=== PATIENT | male | born 1950 | race Caucasian/White ===

== ENCOUNTER 2017-03-21 00:20 | Emergency (ER) | payer OTHER ==
[2017-03-21] MEDS ORDERED: CLINDAMYCIN 600MG PREMIX IVPB 600 MG/50 ML BAG IVPB ONE ×2 (01:04→02:17)
[2017-03-21 01:08] VITALS: BP 151/94; PULSE 85; TEMP 98; BMI 23.6
[2017-03-21 01:14] LABS: BASOPHIL 1.3 % (0-2.0); MCH 30.4 pg (25.7-33.7); MCHC 33.7 g/dl (32.0-35.9); MEAN CELL VOLUME 90.1 fl (80-96); MEAN PLT VOLUME 8.5 fl (7.5-11.1); NEUTROPHILS 64.8 % (42.8-82.8); PLATELET COUNT 156 K/MM3 (134-434); RDW 14.2 % (11.9-15.9); WHITE BLOOD COUNT 6.7 K/mm3 (4.0-10.0)
--- NOTE | 2017-03-21 01:42 | PDOC ---
History of Present Illness - History of Present Illness Initial Comments: 03/21/17 01:47 The patient is a 66 year old male, with a significant past medical history of plantar warts, squamous cell carcinoma of the tongue (diagnosed 1999), who presents to the emergency department with plantars warts. Patient states he had a treatment last week for his warts on his left foot. He is worried that they may be infected so he came to the ER since they seemed to become swollen earlier in the day. He states that he feels like hes walking on golf balls. He has been taking his antibiotics after his recent root canal. He denies any recent fevers, chills, headache or dizziness. He denies any recent nausea, vomit, diarrhea or constipation. He denies any recent chest pain or shortness of breath. He denies any recent dysuria, frequency, urgency or hematuria. Allergies: NKA Primary Care Physician: Nargis Durbin Glassie: Nacho Krishnamurthy <Beverly Adkins - Last Filed: 03/21/17 01:46> <Wendie Morocho - Last Filed: 03/21/17 02:12> - General Chief Complaint: Pain Stated Complaint: R/O L FOOT INFECTION Time Seen by Provider: 03/21/17 01:02 Past History <Beverly Adkins - Last Filed: 03/21/17 01:46> - Past Medical History COPD: No Thyroid Disease: Yes (hypo) - Immunization History Immunization Up to Date: Yes - Suicide/Smoking/Psychosocial Hx Smoking History: Never smoked Have you smoked in the past 12 months: No Hx Alcohol Use: No Drug/Substance Use Hx: No Substance Use Type: None <Wendie Morocho - Last Filed: 03/21/17 02:12> - Past Medical History Allergies/Adverse Reactions: Allergies Allergy/AdvReac Type Severity Reaction Status Date / Time amoxicillin Allergy Verified 03/21/17 00:43 Home Medications: Ambulatory Orders Levothyroxine [Synthroid -] 25 mcg PO DAILY 03/21/17 Review of Systems - Review of Systems Comments:: 03/21/17 01:47 CONSTITUTIONAL: Absent: fever, no chills, no fatigue EYES: Absent: visual changes ENT: Absent: ear pain, no sore throat CARDIOVASCULAR: Absent: chest pain, no palpitations RESPIRATORY: Absent: cough, no SOB GI: Absent: abdominal pain, no nausea, no vomiting, no constipation, no diarrhea GENITOURINARY: Absent: dysuria, no frequency, no hematuria MUSCULOSKELETAL: Absent: back pain, no arthralgia, no myalgia SKIN: Present: plantars warts NEURO: Absent: headache <Beverly Adkins - Last Filed: 03/21/17 01:46> *Physical Exam - Vital Signs Last Vital Signs Temp Pulse Resp BP Pulse Ox 98 F 85 18 151/94 100 03/21/17 00:46 03/21/17 00:46 03/21/17 00:46 03/21/17 00:46 03/21/17 00:46 - Physical Exam Comments: 03/21/17 01:47 GENERAL: Well-appearing, well-nourished. No apparent distress. HEENT: Normocephalic, atraumatic. PERRL, EOM intact. CARDIOVASCULAR: Normal S1, S2. Regular rate and rhythm. PULMONARY: Clear to auscultation bilaterally. ABDOMEN: Soft, non-distended, non-tender. EXTREMITIES: Normal ROM in all four extremities. No gross deformities. SKIN: 3 plantars warts that are surrounded by calluses. On 3rd toe, mild swelling and tenderness next to his wart. No drainage. No area of induration. Not erythematous. NEUROLOGICAL: No focal neurological deficits. <Beverly Adkins - Last Filed: 03/21/17 01:46> - Vital Signs Last Vital Signs Temp Pulse Resp BP Pulse Ox 98 F 85 18 151/94 100 03/21/17 00:46 03/21/17 00:46 03/21/17 00:46 03/21/17 00:46 03/21/17 00:46 <Wendie Morocho - Last Filed: 03/21/17 02:12> ED Treatment Course - LABORATORY CBC & Chemistry Diagram: 03/21/17 01:03 03/21/17 01:06 - ADDITIONAL ORDERS Additional order review: 03/21/17 01:03 RBC 4.39 MCV 90.1 MCHC 33.7 RDW 14.2 MPV 8.5 Neutrophils % 64.8 Lymphocytes % 20.9 Monocytes % 10.0 Eosinophils % 3.0 Basophils % 1.3 <Beverly Adkins - Last Filed: 03/21/17 01:46> - LABORATORY CBC & Chemistry Diagram: 03/21/17 01:03 03/21/17 01:06 - ADDITIONAL ORDERS Additional order review: 03/21/17 01:03 RBC 4.39 MCV 90.1 MCHC 33.7 RDW 14.2 MPV 8.5 Neutrophils % 64.8 Lymphocytes % 20.9 Monocytes % 10.0 Eosinophils % 3.0 Basophils % 1.3 <Wendie Morocho - Last Filed: 03/21/17 02:12> Medical Decision Making - Medical Decision Making 03/21/17 02:07 this pt had his left plantar warts treated about 2 weeks ago and today noted some tenderness mild swelling next to one of the treated warts -pt ALREADy has a bottle full of clindamycin prescribed by his dentist, Mo Hamilton . He showed it to me. He never took any of the medications and there are enough for 1 week. He has a PCN allergy -plan will give IV clinda in ER and he will take the clinadamycxin he already has with him -he is to follow up with his medical sales representative this week IMP infected plantar wart <Wendie Morocho - Last Filed: 03/21/17 02:12> *DC/Admit/Observation/Transfer - Attestations Scribe Attestion: 03/21/17 01:48 Documentation prepared by Beverly Adkins, acting as medical practitioners for Wendie Morocho MD. <Beverly Adkins - Last Filed: 03/21/17 01:46> <Wendie Morocho - Last Filed: 03/21/17 02:12> Diagnosis at time of Disposition: Infection of left foot - Discharge Dispostion Disposition: HOME Condition at time of disposition: Stable - Referrals Referrals: Nargis Durbin MD [Primary Care Provider] - - Patient Instructions Printed Discharge Instructions: DI for Wound Infection Additional Instructions: It is very important to take all your clindamycin as directed Please make an appointment to followup with your foot doctor Apply bacitracin to wound - Post Discharge Activity
[2017-03-21 02:02] LABS: ALBUMIN 3.7 g/dl (3.4-5.0); ANION GAP 9 (8-16); CALCIUM 8.6 mg/dL (8.5-10.1); CO2 24 mmol/L (21-32); CREATININE 1.2 mg/dL (0.7-1.3); GLUCOSE,RANDOM 92 mg/dL (74-106); SGOT/AST 17 U/L (15-37); SGPT/ALT 23 U/L (12-78)
[2017-03-21 02:03] LABS: ALK PHOS 51 U/L (45-117); BILIRUBIN,TOTAL 0.4 mg/dL (0.2-1.0)
== END 2017-03-21 02:38 | disposition home or self-care (01) ==
LOC: JER 00:20
DX: L08.89 Other specified local infections of the skin and subcutaneous tissue (principal); B07.0 Plantar wart; E03.9 Hypothyroidism, unspecified; Z85.810 Personal history of malignant neoplasm of tongue
CPT/HCPCS: 36415; 80053; 85025; 96365; 99281-25

== ENCOUNTER 2018-12-25 07:21 | Day surgery (SDC) | payer MEDICARE, OTHER ==
[2018-12-12 13:17] VITALS: BMI 26.6
[2018-12-25] MEDS ORDERED: PROPOFOL 20 ML ONE (07:53)
[2018-12-25] MEDS ORDERED: MIDAZOLAM HCL 2 MG/2 ML SINGLE DOSE VIAL ONE ×2 (07:53→08:31)
[2018-12-25] MEDS ORDERED: BUPIVACAINE HCL 0.25% 125 MG/50 ML VIAL ONE (08:24)
[2018-12-25] MEDS ORDERED: ONDANSETRON 4 MG/2 ML VIAL IVPUSH PRN (08:40)
[2018-12-25] MEDS ORDERED: ACETAMINOPHEN 325 MG TABLET (FP) PO PRN (08:40)
[2018-12-25] MEDS ORDERED: LIDOCAINE HCL 1%, 10 MG/ML (20ML VIAL) INF ONE (08:50)
[2018-12-25 09:47] VITALS: TEMP 97.4
[2018-12-25 10:00] VITALS: BP 169/90; PULSE 90
--- NOTE | 2018-12-26 13:25 | OP ---
DATE OF OPERATION: 12/25/2018 PREOPERATIVE DIAGNOSIS: Left small finger mass. POSTOPERATIVE DIAGNOSIS: Left small finger mass. OPERATIVE PROCEDURE: Left small finger mass excision. SURGEON: Esvin Choe MD HEMODIALYSIS LAB TECHNICIAN: MAX Montoya ANESTHESIA: Local with sedation. COMPLICATIONS: None. ESTIMATED BLOOD LOSS: Minimal. INDICATION FOR PROCEDURE: The patient is a 68-year-old male with above finding indicated for operative treatment. Risks, benefits, alternatives were discussed with him at length, and proper informed consent was obtained. DESCRIPTION OF PROCEDURE: After proper identification of patient, correct operative site, patient was brought to the operating room and placed supine on the table, bony prominences well padded. Sedation and local anesthesia were given. Left upper extremity was prepped and draped in the usual sterile fashion. Well-padded tourniquet was placed over the sterile prep. Esmarch bandage to exsanguinate the left upper extremity. Tourniquet was inflated to 250 mmHg. A V-shaped incision was made over the distal phalanx. The incision was taken sharply through the skin with blunt and sharp dissection through subcutaneous tissue taking care to protect neurovascular structures. Mass was found to be adjacent to the distal phalanx volarly and was excised in whole and sent for pathological evaluation. Wound was irrigated and repaired with a 5-0 fast-absorbing plain gut sutures. Sterile dressings were applied. Patient was brought to the recovery room in stable condition. He tolerated the procedure well. Yahir Bowles, the occupational therapist's assistant, was integral throughout the procedure. Procedure could not have been performed without a skilled operative occupational therapist's assistant ESVIN CHOE M.D. [id number]
--- NOTE | 2019-01-06 09:40 | PATH ---
Surgical Pathology Report Patient Name: PATTI HANLEY Med. Rec. #: [id number] /Age/Gender: 1950 (Age: 68) / M Account: [id number] Location: [facility] AMBULATORY Taken: 12/25/2018 Received: 12/25/2018 Reported: 01/06/2019 Physicians: Esvin Shin M.D. Specimen(s) Received LEFT MASS SMALL FINGER Clinical History Left small finger mass Final Diagnosis SMALL FINGER, LEFT, MASS, EXCISION: GANGLION CYST. Electronically Signed Barbara Calderón M.D. Gross Description Received in formalin, labeled "left mass, small finger" it is a 0.5 x 0.3 x 0.2 cm portion of brown-black, firm tissue. Entirely submitted in one cassette. AE/12/26/2018 ebram/12/26/2018
== END 2018-12-25 09:55 | disposition home or self-care (01) ==
LOC: FASU 07:21
PROVIDERS: ATTEND Orthopaedic Surgery Hand Surgery
PROC: 0LB80ZZ Excision of Left Hand Tendon, Open Approach (ICD-10-PCS; principal; 2018-12-25 09:00)
DX: M67.442 Ganglion, left hand (principal)
CPT/HCPCS: 88304-TC

== ENCOUNTER 2019-01-28 09:17 | Emergency (ER) | payer MEDICARE, OTHER ==
[2019-01-28 09:57] VITALS: TEMP 97.6; BMI 26.6
[2019-01-28] MEDS ORDERED: KETOROLAC TROMETHAMINE 30 MG/1 ML VIAL IM ONE (09:59)
[2019-01-28] MEDS ORDERED: KETOROLAC TROMETHAMINE 30 MG/1 ML VIAL ONE (10:11)
--- NOTE | 2019-01-28 10:16 | PDOC ---
History of Present Illness - General Chief Complaint: Pain Stated Complaint: LT. FOOT PAIN Time Seen by Provider: 01/28/19 09:57 - History of Present Illness Initial Comments: 01/28/19 10:08 CHIEF COMPLAINT: foot pain HISTORY OF PRESENT ILLNESS: 68 yo M presents to [facility] with pain to left foot s/p injury. Patient reports he was running while playing frisbee yesterday when he felt a pop and subsequently had pain to the arch of his left foot. He reports the pain worsened overnight and this morning "and it feels like something is out of place." Patient has taken leftover [place] after ganglion cyst surgery last month with relief. No recent travel or sick contacts. PAST MEDICAL HISTORY: Denies past medical history FAMILY HISTORY: Denies SOCIAL HISTORY: Denies tobacco, alcohol, illicit drug use. SURGICAL HISTORY: Denies ALLERGIES: No known drug allergies REVIEW OF SYSTEMS General/Constitutional: Denies fever or chills. Denies weakness, weight change. HEENT: Denies change in vision. Denies ear pain or discharge. Denies sore throat. Cardiovascular: Denies chest pain or shortness of breath. Respiratory: Denies cough, wheezing, or hemoptysis. Gastrointestinal: Denies nausea, vomiting, diarrhea or constipation. Denies rectal bleeding. Genitourinary: Denies dysuria, frequency, or change in urination. Musculoskeletal: Pain to arch of left foot. Skin and breasts: Denies rash or easy bruising. Neurologic: Denies headache, vertigo, loss of consciousness, or loss of sensation. PHYSICAL EXAM General Appearance: Well-appearing, appropriately dressed. No apparent distress , no intoxication. HEENT: EOMI, PERRLA, normal ENT inspection, normal voice, TMs normal, pharynx normal. No conjunctival pallor. No photophobia, scleral icterus. Neck: Supple. Trachea midline. No tenderness, rigidity, carotid bruit, stridor , lymphadenopathy, or thyromegaly. Respiratory/Chest: Lungs CTAB. No shortness of breath, chest tenderness, respiratory distress, accessory muscle use. No crackles, rales, rhonchi, stridor , wheezing, dullness Cardiovascular: RRR. S1, S2. No JVD, murmur, bradycardia, tachycardia. Vascular Pulses: Dorsalis-Pedis (R): 2+, Dorsalis-Pedis (L): 2+ Gastrointestinal/Abdominal: Normal bowel sounds. Abdomen soft, non-distended. No tenderness or rebound tenderness. No organomegaly, pulsatile mass, guarding , hernia, hepatomegaly, splenomegaly. Lymphatic: No adenopathy, tenderness. Musculoskeletal/Extremities: Tenderness to lateral aspect of left foot. Negative Joyce's test. Normal inspection. FROM of all extremities, normal capillary refill. Pelvis Stable. No CVA tenderness. No tenderness to extremities, pedal edema, swelling, erythema or deformity. Integumentary: Appropriate color, dry, warm. No cyanosis, erythema, jaundice or rash Neurologic: filament shaper II-XII intact. Fully oriented, alert. Appropriate mood/affect. Motor strength 5/5. No appreciable EOM palsy, facial droop or sensory deficit. Past History - Past Medical History Allergies/Adverse Reactions: Allergies Allergy/AdvReac Type Severity Reaction Status Date / Time Penicillins Allergy Unknown Verified 12/12/18 13:11 Home Medications: Ambulatory Orders Levothyroxine [Synthroid -] 25 mcg PO DAILY 03/21/17 Naproxen 500 mg PO BID PRN #20 tablet 01/28/19 Anemia: No Asthma: No Cancer: Yes (TONGUE) Cardiac Disorders: No CVA: No COPD: No CHF: No Dementia: No Diabetes: No GI Disorders: No Disorders: No HTN: No Hypercholesterolemia: No Liver Disease: No Seizures: No Thyroid Disease: Yes (hypo) - Surgical History Abdominal Surgery: Yes (RIGHT INGUINAL HERNIA REPAIR WITH MESS 1999) Appendectomy: No Cardiac Surgery: No Cholecystectomy: No Lung Surgery: No Neurologic Surgery: No Orthopedic Surgery: No - Immunization History Immunization Up to Date: Yes - Psycho Social/Smoking Cessation Hx Smoking History: Former smoker Have you smoked in the past 12 months: No If you are a former smoker, when did you quit?: 1986 Information on smoking cessation initiated: No Hx Alcohol Use: No Drug/Substance Use Hx: No Substance Use Type: None Hx Substance Use Treatment: No *Physical Exam - Vital Signs Last Vital Signs Temp Pulse Resp BP Pulse Ox 97.6 F 83 18 188/106 H 97 01/28/19 09:53 01/28/19 09:53 01/28/19 09:53 01/28/19 09:53 01/28/19 09:53 ED Treatment Course - LABORATORY CBC & Chemistry Diagram: 01/28/19 10:35 01/28/19 10:35 - RADIOLOGY Radiology Studies Ordered: Category Date Time Status FOOT-LEFT [RAD] Stat Radiology 01/28/19 09:59 Ordered Medical Decision Making - Medical Decision Making 01/28/19 10:16 68 yo M presents to fast track with pain to left foot s/p injury. -foot x-ray -toradol 01/28/19 10:22 Patient c/o of lightheadedness and near syncope s/p Toradol injection. Likely vasovagal response but given patient BP 188/107 on arrival to ED, will order cardiac workup. Note: The patient was transfered to the main ED for higher lever of care. The patient is medically stable for transfer, MAX Herrera and charge nurse/main ED nursing staff aware. Discharge - Discharge Information Problems reviewed: Yes Clinical Impression/Diagnosis: Left foot pain, Bone spur of left foot Condition: Stable Disposition: HOME - Additional Discharge Information Prescriptions: Naproxen 500 mg PO BID PRN #20 tablet PRN Reason: pain - Follow up/Referral Referrals: Bassam Noble MD [Staff Physician] - - Patient Discharge Instructions Patient Printed Discharge Instructions: DI for Foot Pain Additional Instructions: Your x-rays shows bone spur in left foot with no acute fracture or dislocation. use provided magaly bandage and postop shoe to left with foot pain. Soak foot in carolyn salt water and apply hot compress to foot as needed for pain. Follow-up with Dr. Noble as scheduled in 3 days - Post Discharge Activity
[2019-01-28 10:54] LABS: EOS % 2.9 % (0-4.5); HEMATOCRIT 41.2 % (35.4-49); HEMOGLOBIN 14.1 GM/dL (11.7-16.9); LYMPH % 20.5 % (8-40); MCH 30.6 pg (25.7-33.7); MCHC 34.1 g/dl (32.0-35.9); MEAN CELL VOLUME 89.6 fl (80-96); MEAN PLT VOLUME 7.8 fl (7.5-11.1); NEUT % 66.6 % (42.8-82.8); PLATELET COUNT 218 K/MM3 (134-434); RDW 14.1 % (11.9-15.9); WHITE BLOOD COUNT 7.2 K/mm3 (4.0-10.0)
--- NOTE | 2019-01-28 11:04 | PDOC ---
*Physical Exam - Vital Signs Last Vital Signs Temp Pulse Resp BP Pulse Ox 97.6 F 83 18 188/106 H 97 01/28/19 09:53 01/28/19 09:53 01/28/19 09:53 01/28/19 09:53 01/28/19 09:53 - Physical Exam General Appearance: Yes: Nourished, Appropriately Dressed. No: Apparent Distress HEENT: positive: Normal ENT Inspection, TMs Normal, Pharynx Normal Neck: positive: Supple Respiratory/Chest: positive: Lungs Clear, Normal Breath Sounds. negative: Chest Tender, Respiratory Distress, Accessory Muscle Use Cardiovascular: positive: Regular Rhythm, Regular Rate. negative: Murmur Musculoskeletal: positive: Normal Inspection, Other (mild TTP over plantar aspect of right foot) Extremity: positive: Normal Inspection Integumentary: positive: Normal Color. negative: Erythema, Swelling, Ecchymosis , Bruising Neurologic: positive: Fully Oriented, Alert, Normal Mood/Affect, Normal Response , Motor Strength 5/5 <Bert Herrera - Last Filed: 01/28/19 12:39> - Vital Signs Last Vital Signs Temp Pulse Resp BP Pulse Ox 97.6 F 47 L 20 113/70 96 01/28/19 09:53 01/28/19 10:30 01/28/19 10:30 01/28/19 10:30 01/28/19 10:30 <Axel Kerr - Last Filed: 01/28/19 21:20> ED Treatment Course - LABORATORY CBC & Chemistry Diagram: 01/28/19 10:35 01/28/19 10:35 - ADDITIONAL ORDERS Additional order review: 01/28/19 10:35 RBC 4.60 MCV 89.6 MCHC 34.1 RDW 14.1 MPV 7.8 Neutrophils % 66.6 Lymphocytes % 20.5 Monocytes % 9.0 Eosinophils % 2.9 Basophils % 1.0 - Medications Given in the ED: ED Medications Discontinued Medications Generic Name Dose Route Start Last Admin Trade Name Freq PRN Reason Stop Dose Admin Ketorolac Tromethamine 30 mg 01/28/19 09:59 01/28/19 10:17 Toradol Injection - IM 01/28/19 10:00 30 mg ONCE ONE Administration <Bert Herrera - Last Filed: 01/28/19 12:39> - LABORATORY CBC & Chemistry Diagram: 01/28/19 10:35 01/28/19 10:35 - ADDITIONAL ORDERS Additional order review: Laboratory Results 01/28/19 10:35 Sodium 137 Potassium 4.5 Chloride 108 H Carbon Dioxide 24 Anion Gap 5 L BUN 25.0 H Creatinine 1.2 Est GFR (CKD-EPI)AfAm 72.59 Est GFR (CKD-EPI)NonAf 62.63 Random Glucose 120 H Calcium 8.6 Total Bilirubin 0.5 AST 16 ALT 23 Alkaline Phosphatase 60 Creatine Kinase 120 Troponin I < 0.02 Total Protein 6.4 Albumin 3.9 01/28/19 10:35 RBC 4.60 MCV 89.6 MCHC 34.1 RDW 14.1 MPV 7.8 Neutrophils % 66.6 Lymphocytes % 20.5 Monocytes % 9.0 Eosinophils % 2.9 Basophils % 1.0 - Medications Given in the ED: ED Medications Discontinued Medications Generic Name Dose Route Start Last Admin Trade Name Freq PRN Reason Stop Dose Admin Ketorolac Tromethamine 30 mg 01/28/19 09:59 01/28/19 10:17 Toradol Injection - IM 01/28/19 10:00 30 mg ONCE ONE Administration <Axel Kerr - Last Filed: 01/28/19 21:20> Medical Decision Making - Medical Decision Making 01/28/19 12:12 I assumed care of this 68yo M presenting with Lt foot pain s/po playing freesby yesterday and twisting left foot. Patient took home percocet prior to ED visit and had episode of dizziness after Toradol injection for pain and laying on the floor at radiology while x-rays of foot is being down. Patient report feeling better after 5 mins and requested to be only seen for his foot pain. EKG done shows nsr. CBC and cardiac profile wnl and shows no abnormality. X-rays of [place] foot shows bone spur at calcaneous with no acute pathology or FX. Patient has f/u apt with ortho in 3 days. Patient requesting narcotics for his foot pain and advised he can only be given NSAIDS and f/u with ortho as scheduled as there is no fracture. Patient asymptomatic and stable for discharge on naproxen prn for pain with orthopedics f/u. left foot wrapped with magaly bandage and patient provided hard sole shoe and crutches to keep weight off left foot until orthopedics f/u <Bert Herrera - Last Filed: 01/28/19 12:39> Discharge - Discharge Information Problems reviewed: Yes - Admission No <Bert Herrera - Last Filed: 01/28/19 12:39> <Axel Kerr - Last Filed: 01/28/19 21:20> - Discharge Information Clinical Impression/Diagnosis: Left foot pain, Bone spur of left foot Condition: Stable Disposition: HOME - Additional Discharge Information Prescriptions: Naproxen 500 mg PO BID PRN #20 tablet PRN Reason: pain - Follow up/Referral Referrals: Bassam Noble MD [Staff Physician] - - Patient Discharge Instructions Patient Printed Discharge Instructions: DI for Foot Pain Additional Instructions: Your x-rays shows bone spur in left foot with no acute fracture or dislocation. use provided magaly bandage and postop shoe to left with foot pain. Soak foot in carolyn salt water and apply hot compress to foot as needed for pain. Follow-up with Dr. Noble as scheduled in 3 days
[2019-01-28 11:15] VITALS: BP 113/70; PULSE 47
[2019-01-28 11:31] LABS: ALBUMIN 3.9 g/dl (3.4-5.0); ALK PHOS 60 U/L (45-117); ANION GAP 5 MMOL/L (8-16); BILIRUBIN,TOTAL 0.5 mg/dL (0.2-1); CALCIUM 8.6 mg/dL (8.5-10.1); CHLORIDE 108 mmol/L (98-107); CO2 24 mmol/L (21-32); CREATININE 1.2 mg/dL (0.55-1.3); GLUCOSE,RANDOM 120 mg/dL (74-106); POTASSIUM 4.5 mmol/L (3.5-5.1); SGOT/AST 16 U/L (15-37); SGPT/ALT 23 U/L (13-61); SODIUM 137 mmol/L (136-145); TOT PROT 6.4 g/dl (6.4-8.2)
--- NOTE | 2019-01-29 11:04 | EKG ---
Test Reason : Blood Pressure : / mmHG Vent. Rate : 059 BPM Atrial Rate : 059 BPM P-R Int : 174 ms QRS Dur : 102 ms QT Int : 426 ms P-R-T Axes : 051 -27 001 degrees QTc Int : 421 ms SINUS BRADYCARDIA WITH PREMATURE VENTRICULAR COMPLEXES OR FUSION COMPLEXES OTHERWISE NORMAL ECG NO PREVIOUS ECGS AVAILABLE Confirmed by ALEXANDRA DARDEN MD ([id number]) on 01/29/2019 11:03:44 AM Referred By: Confirmed By:ALEXANDRA DARDEN MD
== END 2019-01-28 12:39 | disposition home or self-care (01) ==
LOC: JER 09:17
PROC: 3E0233Z Introduction of Anti-inflammatory into Muscle, Percutaneous Approach (ICD-10-PCS; principal; 2019-01-28)
DX: M77.52 Other enthesopathy of left foot and ankle (principal); Y93.02 Activity, running; Y93.74 Activity, frisbee; Y92.838 Other recreation area as the place of occurrence of the external cause; Y99.8 Other external cause status; Z88.0 Allergy status to penicillin; Z85.810 Personal history of malignant neoplasm of tongue
CPT/HCPCS: 36415; 73630-TC-LT; 80053; 82550; 84484; 85025; 93005; 93010; 96372; 99282-25

== ENCOUNTER 2019-03-23 03:05 | Emergency (ER) | payer MEDICARE, OTHER ==
[2019-03-23 03:30] VITALS: TEMP 98.9; BMI 26.4
--- NOTE | 2019-03-23 04:22 | PDOC ---
History of Present Illness - General Chief Complaint: Vomiting/Diarrhea Stated Complaint: FAINTING Time Seen by Provider: 03/23/19 03:44 History Source: Patient Exam Limitations: No Limitations - History of Present Illness Initial Comments: 03/23/19 05:25 68 yo M with a hx of HTN and lower extremity venous insufficiency presents to the emergency department s/p syncopal event in his bathroom. Per the patient, he began having N/V/D yesterday at 3 pm after eating reheated salmon he acquired from a local market that was selling them at a discount the previous day on the account of they had to be thrown out. Per the patient, he states he had 6+ vomiting episodes without blood or bile. He has had multiple diarrhea episodes without blood and melena. Denies pain. At 3am, he went to the bathroom to urinate when he felt "my blood pressure go low" and felt lightheaded and "luciano out". He woke up on the floor with left knee pain. Denies headaches. Prior to the syncopal episode, he denies the following: headaches, chest pain, SOB, nausea, palpitations, and visual disturbance. Allergies: PCN Past History - Past Medical History Allergies/Adverse Reactions: Allergies Allergy/AdvReac Type Severity Reaction Status Date / Time Penicillins Allergy Unknown Verified 03/23/19 03:30 Home Medications: Ambulatory Orders Levothyroxine [Synthroid -] 25 mcg PO DAILY 03/21/17 Chlorthalidone [Hygroton -] 25 mg PO DAILY 03/23/19 Anemia: No Asthma: No Cancer: Yes (TONGUE) Cardiac Disorders: No CVA: No COPD: No CHF: No Dementia: No Diabetes: No GI Disorders: No Disorders: No HTN: No Hypercholesterolemia: No Liver Disease: No Seizures: No Thyroid Disease: Yes (hypo) - Surgical History Abdominal Surgery: Yes (RIGHT INGUINAL HERNIA REPAIR WITH MESS 1999) Appendectomy: No Cardiac Surgery: No Cholecystectomy: No Lung Surgery: No Neurologic Surgery: No Orthopedic Surgery: No - Immunization History Immunization Up to Date: Yes - Psycho Social/Smoking Cessation Hx Smoking History: Never smoked Have you smoked in the past 12 months: No If you are a former smoker, when did you quit?: 1986 Information on smoking cessation initiated: No Hx Alcohol Use: No Drug/Substance Use Hx: No Substance Use Type: None Hx Substance Use Treatment: No *Physical Exam - Vital Signs Last Vital Signs Temp Pulse Resp BP Pulse Ox 98.9 F 75 18 129/82 95 03/23/19 03:27 03/23/19 03:27 03/23/19 03:27 03/23/19 03:27 03/23/19 03:27 ED Treatment Course - LABORATORY CBC & Chemistry Diagram: 03/23/19 04:30 03/23/19 04:30 Discharge - Follow up/Referral Referrals: Nargis Durbin MD [Primary Care Provider] - - Patient Discharge Instructions - Post Discharge Activity
[2019-03-23] MEDS ORDERED: FAMOTIDINE 20 MG/50 ML IVPB 20 MG/50 ML MG IVPB ONE ×2 (04:29→04:32)
[2019-03-23] MEDS ORDERED: SODIUM CHLORIDE 1,000 ML IV STA ×2 (04:29→04:30)
[2019-03-23 04:44] LABS: BASO % 0.3 % (0-2.0); EOS % 0.6 % (0-4.5); HEMATOCRIT 43.3 % (35.4-49); HEMOGLOBIN 14.8 GM/dL (11.7-16.9); LYMPH % 1.9 % (8-40); MCH 30.4 pg (25.7-33.7); MCHC 34.1 g/dl (32.0-35.9); MEAN CELL VOLUME 89.2 fl (80-96); MEAN PLT VOLUME 8.1 fl (7.5-11.1); MONO % 3.7 % (3.8-10.2); NEUT % 93.5 % (42.8-82.8); PLATELET COUNT 195 K/MM3 (134-434); RBC 4.85 M/mm3 (4.00-5.60); RDW 14.5 % (11.9-15.9); WHITE BLOOD COUNT 8.3 K/mm3 (4.0-10.0)
[2019-03-23 05:11] LABS: ALBUMIN 3.5 g/dl (3.4-5.0); BILIRUBIN,TOTAL 0.7 mg/dL (0.2-1); BLOOD UREA NITROGEN 27.3 mg/dL (7-18); CALCIUM 7.9 mg/dL (8.5-10.1); CREATININE 1.2 mg/dL (0.55-1.3); POTASSIUM 4.5 mmol/L (3.5-5.1)
--- NOTE | 2019-03-23 05:15 | PDOC ---
Attending Attestation - Resident Resident Name: IqraDemetrio - ED Attending Attestation I have performed the following: I have examined & evaluated the patient, The case was reviewed & discussed with the resident, I agree w/resident's findings & plan - HPI HPI: 03/23/19 05:15 Pt comes with food poisoning with bad fish; states that he ate the free salmon on the steam table at the end of the restaurant day, and then around midnight he got food poisoning. Pt comes with vomiting and dehydration. Complains of epigastric pain and chest pain. No fevers or chills. No SOB, or cough. Exertion doesn't affect pt's condition. - Physicial Exam PE: 03/23/19 06:17 Agree with resident exam normal heart and lungs and abdomen. No flank pain No fever and no rash Pt was hydrated with 2L NSS in the ER and he is feeling vastly improved. - Medical Decision Making 03/23/19 06:19 Stable for discharge. Heart Score/ECG Review - ECG Intrepretation Rhythm: Regular Rhythm - P and OR Delta Wave(s) Present: No WPW: No - QRS Poor R Wave Progression: No Q Wave Present: No - ST and T Early Repolarization: No Non Specific ST-T Wave changes: No Flattened T Waves: No Prolonged Q-T Interval: No - ECG Impressions Normal ECG: Yes Non-specific ST Elevation: No Ischemic Changes: No Bradycardia: No Torsades nita Pointes: No WPW: No
[2019-03-23 06:01] VITALS: BP 141/84; PULSE 80
[2019-03-23 09:04] LABS: PLATELET ESTIMATE ADEQUATE
--- NOTE | 2019-03-24 00:56 | EKG ---
Test Reason : Blood Pressure : / mmHG Vent. Rate : 071 BPM Atrial Rate : 071 BPM P-R Int : 168 ms QRS Dur : 098 ms QT Int : 416 ms P-R-T Axes : 060 -50 020 degrees QTc Int : 452 ms NORMAL SINUS RHYTHM LEFT AXIS DEVIATION ABNORMAL ECG WHEN COMPARED WITH ECG OF 28-JAN-2019 11:19, VENT. RATE HAS INCREASED Confirmed by CAROLINE MCCARTHY MD ([id number]) on 03/24/2019 12:55:56 AM Referred By: Confirmed By:CAROLINE MCCARTHY MD
== END 2019-03-23 07:30 | disposition home or self-care (01) ==
LOC: JER 03:05
PROC: 3E0337Z Introduction of Electrolytic and Water Balance Substance into Peripheral Vein, Percutaneous Approach (ICD-10-PCS; principal; 2019-03-23)
PROC: 3E033GC Introduction of Other Therapeutic Substance into Peripheral Vein, Percutaneous Approach (ICD-10-PCS; 2019-03-23)
DX: R19.7 Diarrhea, unspecified (principal); I10 Essential (primary) hypertension; E03.9 Hypothyroidism, unspecified; Z85.810 Personal history of malignant neoplasm of tongue; Z88.0 Allergy status to penicillin
CPT/HCPCS: 36415; 80053; 82550; 82553; 83690; 84484; 85025; 93005; 93010; 96361; 96374; 99283-25; J7030